=== PATIENT | male | born 1950 | race Caucasian/White ===

== ENCOUNTER 2017-03-06 21:24 | Observation (INO) ==
--- NOTE | 2017-03-06 21:33 | Emergency Department Note ---
Disposition Clinical Impression: Lower gastrointestinal hemorrhage, Anemia, Back pain, Abnormal EKG, Thoracic spine fracture Disposition: Admitted As Inpatient Referrals: Unassigned,Provider [Non-Partnered Physician] - Forms: ED Satisfaction Letter General Adult HPI - General Chief complaint: ED GI Bleed Stated complaint: rectal bleeding Time Seen by Provider: 03/06/17 21:31 Source: patient Limitations: no limitations - History of Present Illness HPI Narrative: 66-year-old male reports to the emergency department complaining of bright red blood per rectum which started earlier this evening. There is no history of rectal pain or trauma. No vomiting. No blackened stool. No abdominal pain. The patient reports chronic back pain secondary to a thoracic fracture. There is no history of acute trauma or acute back pain. The patient is not anticoagulated and has no history of aneurysm. No chest pain or shortness of breath. No dizziness weakness or syncope. No leg swelling or pain rash or urinary problems. The patient denies any other complaints or concerns. He has no history of ulcer disease or previous GI bleeding. No history of diverticulitis or colon malignancy. Pain Scale: 0 - Related Data Allergies Allergy/AdvReac Type Severity Reaction Status Date / Time No Known Allergies Allergy Verified 03/06/17 21:25 All systems ED: reviewed and negative except as stated. Past Medical History - Past Medical History Medical history: Reports: hypertension, myocardial infarction Psychiatric history: Reports: no psych history - Social History Smoking Status: Never smoker Smokeless Tobacco Status: No Alcohol use: Reports: none Drug use: Reports: none Physical Exam - General Limitations: no limitations General appearance: alert, in no apparent distress - Head Head exam: atraumatic, normocephalic, normal inspection - Eye Eye exam: Present: normal appearance, PERRL, EOMI - ENT ENT exam: normal exam, normal oropharynx, mucous membranes moist - Neck Neck exam: Present: normal inspection, full ROM, trachea midline. Absent: tenderness - Chest Chest inspection: Present: symmetric chest wall rise. Absent: tenderness - Respiratory Respiratory exam: Present: normal lung sounds bilaterally. Absent: respiratory distress, accessory muscle use, prolonged expiratory phase - Cardiovascular Cardiovascular exam: Present: regular rate, normal rhythm, normal heart sounds - Abdominal Exam Abdominal exam: Present: soft, Non-Tender, normal bowel sounds. Absent: tenderness, distention, guarding, rebound, rigidity, pulsatile mass - Rectal Exam [employer] present during exam: Yes Rectal exam: Present: normal inspection, bloody stool, other (External exam only notable bright red blood). Absent: hemorrhoids - Extremities Exam Extremities exam: Present: normal inspection, full ROM, normal capillary refill. Absent: tenderness, pedal edema, joint swelling, calf tenderness - Expanded Lower Extremity Exam Lower leg exam: Absent: Homans' sign Neurovascular/Tendon exam: Present: normal capillary refill. Absent: motor deficit, sensory deficit, tendon deficit, extremity cold to touch, pallor - Back Exam Back exam: Present: normal inspection, full ROM. Absent: tenderness, CVA tenderness (R), CVA tenderness (L), vertebral tenderness - Neurological Exam Neurological exam: Present: alert, oriented X3. Absent: motor sensory deficit - Psychiatric Psychiatric exam: Present: normal affect, normal mood - Skin Skin exam: Present: warm, dry, intact, normal color. Absent: rash, cyanosis, diaphoresis, erythema, pallor, mottled Course Vital Signs Temperature 97.8 F 03/06/17 21:25 Pulse Rate 83 03/06/17 21:25 Respiratory Rate 20 03/06/17 21:25 Blood Pressure 213/115 03/06/17 21:25 O2 Sat by Pulse Oximetry 96 03/06/17 21:25 Temperature 97.8 F 03/06/17 21:25 Pulse Rate 90 03/06/17 22:43 Respiratory Rate 16 03/06/17 22:43 Blood Pressure 154/95 03/06/17 22:43 O2 Sat by Pulse Oximetry 95 03/06/17 22:43 Oxygen Delivery Oxygen Delivery Room Air Medical Decision Making - [facility] Narrative Medical decision making narrative: The patient has painless rectal bleeding, he has had bloody stools in the ED. His laboratory studies show no major abnormality apart from slight anemia. The patient is currently not tachycardic his EKG just showed a right bundle branch block but no acute ST changes troponin negative no chest pain. The patient was given IV fluid. I discussed the case with the hospitalist on-call who has accepted the patient to their care. Per the hospitalist a secondary consult to Dr. Chandler for endoscopy if needed, I spoke with him directly he will act as health analytics consultant, we ordered CT the abdomen and pelvis to assess for diverticular disease and/or potential aortic aneurysm with fistula which seems less likely however it is conceivable. Patient is currently stable pending admission. - Lab Data Lab results reviewed: Yes I reviewed the patient's lab results. Result diagrams: 03/06/17 21:47 03/06/17 21:47 Lab Results 03/06/17 03/06/17 03/06/17 Range/Units 21:47 21:47 21:47 WBC 6.7 (4.3-11.1) K/mcL RBC 4.25 (4.19-5.50) M/mcL Hgb 12.8 L (12.9-16.9) g/dL Hct 40.7 (37.5-50.1) % MCV 95.8 (83.0-100.0) fL MCH 30.1 (28.0-33.3) pg MCHC 31.4 L (31.6-35.5) g/dL RDW 14.6 H (11.5-14.5) % Plt Count 296 (140-400) K/mcL MPV 9.7 (9.4-12.4) fL Immature Gran % 0.2 (0-4) % Seg Neutrophils % 54.1 % Lymphocytes % 24.5 % Monocytes % 14.0 % Eosinophils % 6.3 % Basophils % 0.9 % Neutrophils # 3.6 (1.6-8.9) K/mcL Lymphocytes # 1.6 (0.6-4.6) K/mcL Monocytes # 0.9 (0.0-1.3) K/mcL Eosinophils # 0.4 (0.0-0.6) K/mcL Basophils # 0.1 (0.0-0.2) K/mcL PT 10.7 (9.4-12.1) Seconds INR 1.0 APTT 29.6 (26.0-36.0) Seconds Sodium 139 (136-145) mEq/L Potassium 4.1 (3.5-4.5) mEq/L Chloride 104 (98-109) mEq/L Carbon Dioxide 25 (19-29) mEq/L BUN 20 (8-26) mg/dL Creatinine 0.88 (0.72-1.25) mg/dL Est GFR ( Amer) > 60 (> 60) Est GFR (Non-Af Amer) > 60 (> 60) BUN/Creatinine Ratio 23 (6-26) Glucose 100 H (70-99) mg/dL Calculated Osmolality 291 (280-300) Calcium 8.7 (8.6-10.8) mg/dL Total Bilirubin (0.2-1.2) mg/dL Direct Bilirubin (0.0-0.5) mg/dL Indirect Bilirubin (0.0-1.2) mg/dL AST (5-34) Units/L ALT (0-55) Units/L Alkaline Phosphatase (38-126) Units/L Troponin I (0-0.03) ng/mL Serum Total Protein (6.0-8.3) g/dL Albumin (3.5-5.0) g/dL Globulin (2.4-3.5) g/dL Albumin/Globulin Ratio (1.1-2.2) Lipase 25 (8-78) Units/L 03/06/17 03/06/17 Range/Units 21:47 21:47 WBC (4.3-11.1) K/mcL RBC (4.19-5.50) M/mcL Hgb (12.9-16.9) g/dL Hct (37.5-50.1) % MCV (83.0-100.0) fL MCH (28.0-33.3) pg MCHC (31.6-35.5) g/dL RDW (11.5-14.5) % Plt Count (140-400) K/mcL MPV (9.4-12.4) fL Immature Gran % (0-4) % Seg Neutrophils % % Lymphocytes % % Monocytes % % Eosinophils % % Basophils % % Neutrophils # (1.6-8.9) K/mcL Lymphocytes # (0.6-4.6) K/mcL Monocytes # (0.0-1.3) K/mcL Eosinophils # (0.0-0.6) K/mcL Basophils # (0.0-0.2) K/mcL PT (9.4-12.1) Seconds INR APTT (26.0-36.0) Seconds Sodium (136-145) mEq/L Potassium (3.5-4.5) mEq/L Chloride (98-109) mEq/L Carbon Dioxide (19-29) mEq/L BUN (8-26) mg/dL Creatinine (0.72-1.25) mg/dL Est GFR ( Amer) (> 60) Est GFR (Non-Af Amer) (> 60) BUN/Creatinine Ratio (6-26) Glucose (70-99) mg/dL Calculated Osmolality (280-300) Calcium (8.6-10.8) mg/dL Total Bilirubin 0.3 (0.2-1.2) mg/dL Direct Bilirubin 0.1 (0.0-0.5) mg/dL Indirect Bilirubin 0.2 (0.0-1.2) mg/dL AST 14 (5-34) Units/L ALT 10 (0-55) Units/L Alkaline Phosphatase 106 (38-126) Units/L Troponin I 0.00 (0-0.03) ng/mL Serum Total Protein 7.7 (6.0-8.3) g/dL Albumin 3.5 (3.5-5.0) g/dL Globulin 4.2 H (2.4-3.5) g/dL Albumin/Globulin Ratio 0.8 L (1.1-2.2) Lipase (8-78) Units/L - Radiology Data Radiology results reviewed: Yes I reviewed the patient's radiology results.
[2017-03-06 22:09] LABS: Basophils # 0.1 K/mcL (0.0-0.2); Basophils % 0.9 %; Eosinophils # 0.4 K/mcL (0.0-0.6); Eosinophils % 6.3 %; Hematocrit 40.7 % (37.5-50.1); Hemoglobin 12.8 g/dL (12.9-16.9); Immature Granulocytes % 0.2 % (0-4); Lymphocytes # 1.6 K/mcL (0.6-4.6); Lymphocytes % 24.5 %; Mean Corpuscular HGB Conc 31.4 g/dL (31.6-35.5); Mean Corpuscular Hemoglobin 30.1 pg (28.0-33.3); Mean Corpuscular Volume 95.8 fL (83.0-100.0); Mean Platelet Volume 9.7 fL (9.4-12.4); Monocytes # 0.9 K/mcL (0.0-1.3); Neutrophils # 3.6 K/mcL (1.6-8.9); Platelet Count 296 K/mcL (140-400); Red Blood Count 4.25 M/mcL (4.19-5.50); Red Cell Distribution Width 14.6 % (11.5-14.5); Segmented Neutrophils % 54.1 %
[2017-03-06] MEDS ORDERED: 0.9 % Sodium Chloride 1,000 ML IVC ONE (22:12)
[2017-03-06 22:15] LABS: Prothrombin Time 10.7 Seconds (9.4-12.1)
[2017-03-06 22:17] LABS: Activated Partial Thrombo Time 29.6 Seconds (26.0-36.0)
[2017-03-06 22:24] LABS: Albumin 3.5 g/dL (3.5-5.0); Albumin/Globulin Ratio 0.8 (1.1-2.2); Bilirubin,Direct 0.1 mg/dL (0.0-0.5); Bilirubin,Indirect 0.2 mg/dL (0.0-1.2); Bilirubin,Total 0.3 mg/dL (0.2-1.2); Globulin 4.2 g/dL (2.4-3.5); Total Protein 7.7 g/dL (6.0-8.3)
[2017-03-06 22:25] LABS: BUN/Creatinine Ratio 23 (6-26); Blood Urea Nitrogen 20 mg/dL (8-26); Calcium 8.7 mg/dL (8.6-10.8); Carbon Dioxide 25 mEq/L (19-29); Chloride 104 mEq/L (98-109); Glucose 100 mg/dL (70-99); Lipase 25 Units/L (8-78); Osmolality,Calculated 291 (280-300); Potassium 4.1 mEq/L (3.5-4.5); Sodium 139 mEq/L (136-145); eGFR For African Americans > 60 (> 60); eGFR For Non-African Americans > 60 (> 60)
[2017-03-07] MEDS ORDERED: Ondansetron ODT 4 MG TAB.RAPDIS SL PRN (08:44)
[2017-03-07] MEDS ORDERED: Naloxone 0.4 MG/ML INJ IVP PRN (08:44)
[2017-03-07] MEDS ORDERED: Famotidine 20 MG/2 ML VIAL IVP PRN (08:54)
[2017-03-07] MEDS ORDERED: *HR* HYDROmorphone (PF) 1 MG/ML SYRINGE IVP PRN (08:54)
[2017-03-07] MEDS ORDERED: Ondansetron 4 MG/2 ML VIAL IVP PRN (08:54)
[2017-03-07] MEDS ORDERED: *HR* OxyCODONE Immed Rel 5 MG TABLET PO PRN (08:54)
[2017-03-07] MEDS ORDERED: Ringers Solution, Lactated 1,000 ML IVC SCH (09:00)
--- NOTE | 2017-03-07 09:06 | Internal Med History&Physical ---
Date of Encounter: 03/07/17 Time of Encounter: 09:00 Assessment and Plan (1) Rectal bleeding Status: Acute . (2) Acute blood loss anemia Status: Acute . (3) Lower gastrointestinal hemorrhage Status: Acute . Internal Medicine - H&P: HPI Chief complaint: Rectal bleeding Admitted From: Emergency Dept Plans for Post Hospital Care: Home History of present illness: Mr. Torrez is a 66 year old male with history significant of hypertension, dyslipidemia, OA/OP, DDD/DJD of spine, chronic MSK/back pain, comp fxs T-spine, CAD/PTCAstents/CABG/AMIs, obesity, nonsmoker, etc.. The patient is admitted [facility] parameters when he presented with complaints of bright red blood per rectum starting earlier in the evening of the day of admission. Patient denied any pain with bowel movements. Denied any trauma. Denied any nausea vomiting or denied awareness of any blackened or tarry stools or mucousy stool passage. Denied constipation or abdominal pain as a prelude to symptoms. 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 Not currently on any anticoagulation therapy denies any exercises and nonsteroidal anti-inflammatory use for pain. Findings in the ED noted patient be afebrile. Pulse 90 bpm respirations 16-20 BP 154-213/95-115. O2 saturation 96% on room air. WBC 6.7 hemoglobin 12.8 platelets 296,000. Differential normal. PT 10.7 INR 1 PTT 29.6. Metabolic panel normal BUN 20 creatinine 0.88. Glucose 100 osm 291. Lipase 25. Hepatic function normal. Troponin 0.00. Chest x-ray demonstrated no acute or active cardiac border process. Median sternotomy apparent enlarged right-sided shadow stable. CT abdomen and pelvis demonstrates no acute findings. Bilateral inguinal hernias containing fat left greater than right. Colonic diverticulosis. Preliminary impression suggests a lower gastrointestinal bleed/blood per rectum. Painless, wipe hematochezia. Clinically stable at this time with no orthostasis or symptomatic anemia due to blood loss. SIRS/sepsis criteria not present at admission. Vital signs do show a degree of accelerated hypertension/ hypertensive urgency. This was also asymptomatic. Radiographic findings notes extensive diverticular disease of the colon. This is potentially the source for bleeding in this setting. Further elucidation required, to include endoscopic assessment and potential intervention. The patient presents a risk for further acute clinical decline and morbidity given presenting chief complaints and comorbid conditions. Workup and treatments will proceed comprehensively. The patient was visited and interviewed and examined. Cumulative laboratory and radiographic data base will be considered and discussed. Pertinent ancillary medical records including ECW and PCI documentation when available was reviewed and considered. Given the patient's presenting concerns, past medical history, clinical findings and symptoms, he is admitted at this time will undergo further evaluation and disposition. Orders were written as per the computerized physician border patrol agent system.......................................................................... .................... Consultative opinions will be sought as clinical circumstances justify. Initial consultative opinion as requested general surgery/endoscopy. Pain management needs will be addressed. Laboratory+radiographic data base will be updated as appropriate. Studies include: pt/inr, aptt, ddimer, amylase, lipase, type/screen, hemoccult, cardiac injury panel, BNP, UA, metabolic and hematologic panel, magnesium, phosphorus, ionized calcium, thyroid panel, lipid profile, A1c, C-peptide, CRP, sedimentation rate, blood gas, lactic acid, serologies, etc. Precautions: Aspiration, fall, delirium protocol/surveillance initiated. Telemetry with continuous hemodynamic monitoring and pulse oximetry initiated. Orthostatic vital signs. Empiric antibiotic coverage: pending diagnostics/culture data. Special studies: CT chest/abd-pelvis, chest x-ray, telemetry, EKG. Pulmonary toilet: Incentive spirometry. PRN: aerosol bronchodilator, mucolytic, antitussive. Supplemental oxygen. Corticosteroid therapy PRN. CPAP/BiPAP supplemental oxygen delivery PRN. Aerosol Mucomyst therapy PRN. Fluid and electrolyte repletion efforts will proceed. Careful attention to fluid balance and renal recovery will be emphasized. Avoidance of nephrotoxic exposure and adverse drug drug interaction in the setting of impaired renal function will be monitored closely. Acute coronary syndrome protocol/surveillance initiated. DVT and PUD prophylaxis initiated: PPI therapy, intermittent pneumatic cuffs/ TEDs. Subcutaneous heparin/Lovenox held pending resolution of rectal bleeding. Early ambulation will be encouraged. Immunization updates recommended. Influenza and pneumococcal vaccinations as part of ongoing preventative healthcare recommendations strongly recommended. Smoking cessation counseling briefly addressed. Patient is a nonsmoker. Advanced care directive discussion briefly addressed. Patient does not declare any healthcare restrictions at this time. Cardiovascular risk appraisal and cardiovascular risk reduction efforts will be emphasized. Physical=occupational therapy may be counseled to evaluate patient's functional capacity and progressive mobility if circumstances justify. Nutrition/dietary education and supplementary diet options counseling may be considered as circumstances justify. Outpatient medication schedules will be reviewed, confirmed and facilitated as appropriate. Reconciliation of home treatments including adjustments, substitutions and reintroduction into the treatment regimen will address necessary maintenance therapies for chronic pre-existing medical conditions. Plan of care has been reviewed and discussed in detail with the patient. Questions addressed. Hospital course dictated by clinical findings, treatment response and potential consultative interventions. Patient is at risk for further acute clinical declinea and morbidity due to his presenting chief complaints and comorbid conditions. Condition is serious. Prognosis is guarded. CODE STATUS is full. Past Med Surg Social Fam HX - Past Medical History Source: old records reviewed Medical history: aortic aneurysm, arthritis (DDD/DJD of spine), cancer, coronary artery disease, GERD, GI bleed, hyperlipidemia, hypertension, myocardial infarction, osteoporosis, other (Degenerative disc degenerative joint disease of the spine. Compression fractures T5-T6 T7-T8 vertebra. Chronic back pain) Psychiatric history: no psych history - Past Surgical History Surgical History: angioplasty/stent, cholecystectomy, coronary bypass (CABG), other - Social History Smoking Status: Never smoker Smokeless Tobacco Status: No Alcohol use: none Drug use: none Occupational status: retired Current living situation: Home, With Family Activity Level: Independent ambulation, Mostly sedentary Recent Out of Country Travel Within the Last 8 Weeks: No Exposure or Possible Exposure to Illness During Travel: No - Family History Father Name: Trey Torrez Living Status: Age at : 45 Cause of : Heart attack Mother Living Status: Age at : 82 Cause of : Heart failure Internal Medicine - H&P: Meds Acetaminophen [Pain Reliever] 1,000 mg PO TID 03/07/17 [History] Atorvastatin [Lipitor] 10 mg PO DAILY 03/07/17 [History] Isosorbide MONOnitrate (24 HR) [Imdur] 30 mg PO DAILY 03/07/17 [History] Lisinopril [Zestril] 10 mg PO DAILY 03/07/17 [History] Metoprolol XL (24 HR) Succ [Toprol Xl] 75 mg PO DAILY 03/07/17 [History] Docusate [Colace] 100 mg PO BID PRN #60 capsule 03/09/17 [Rx] Allergies No Known Allergies Allergy (Verified 03/06/17 21:25) All Systems PM: A 10-system review of systems was performed and is negative for pertinent findings except as documented above in the HPI. - Constitutional Constitutional: as per HPI, no chills, no fever(s), no night sweats - EENT Eyes: as per HPI, no change in vision, no discharge, no pain, no photophobia Ears: as per HPI, no ear discharge, no ear pain, no tinnitus Nose, mouth and throat: as per HPI, no dysphagia, no nasal discharge, no neck pain, no sore throat - Cardiovascular Cardiovascular ROS IM: as per HPI, no chest pain, no diaphoresis, no dyspnea, no lightheadedness, no palpitations, no syncope - Respiratory Respiratory: as per HPI, no cough, no dyspnea, no wheezing, no excessive phlegm production - Gastrointestinal Gastrointestinal: hematochezia, melena, no abdominal pain, no coffee ground emesis, no diarrhea, no hematemesis, no nausea, no vomiting - Genitourinary Genitourinary ROS male: as per HPI - Musculoskeletal Musculoskeletal ROS IM: as per HPI, back pain, no numbness, no tingling - Integumentary Integumentary IM: as per HPI, no rash, no unusual bruising - Neurological Neurological ROS: as per HPI, no confusion, no convulsions, no focal weakness, no numbness, no tingling, no tremor(s) - Psychiatric Psychiatric: as per HPI - Endocrine Endocrine IM: as per HPI - Hematologic/Lymphatic Hematologic/Lymphatic: as per HPI, no easy bruising - Allergic/Immunologic Allergic/Immunologic: as per HPI - Constitutional Vitals: Temp Pulse Resp BP Pulse Ox 97.3 F L 55 16 146/71 92 03/07/17 04:45 03/07/17 04:45 03/07/17 04:45 03/07/17 04:45 03/07/17 04:45 Vital Signs Temp Pulse Resp BP Pulse Ox 03/07/17 04:45 97.3 F L 55 16 146/71 92 03/07/17 01:27 97 03/07/17 00:54 97.8 F 64 15 167/76 97 03/07/17 00:31 18 154/83 03/06/17 23:05 100 18 141/86 94 03/06/17 22:43 90 16 154/95 95 03/06/17 21:50 97 03/06/17 21:49 97 18 164/80 94 03/06/17 21:25 97.8 F 83 20 213/115 96 Intake and Output 03/06/17 03/07/17 03/07/17 23:59 07:59 15:59 Intake Total 1000 / 1000 Output Total 0 / 0 Balance 1000 / 1000 Intake: IV Fluids 1000 / 1000 0.9 % Sodium Chloride 1, 1000 / 1000 000 ML @ 3750 mls/hr IVC .Q16M ONE Rx#:[id number] Oral 0 / 0 Output: Urine 0 / 0 Other: # Voids 1 Weight 95.254 kg 95.98 kg Patient Weight 03/07/17 23:59 Weight 95.98 kg General appearance: Present: mild distress, A&O X 3, answers questions appropriately - Head Head exam: Present: atraumatic, normocephalic - Eye Eye exam: Present: EOMI, PERRL, conjuntiva pink, sclera anicteric Pupils: Present: normal accommodation, PERRL - ENT ENT exam: Present: mucous membranes moist, normal oropharynx - Neck Neck exam general surgery: Present: supple, trachea midline. Absent: lymphadenopathy - Respiratory Respiratory exam: Present: decreased breath sounds, CTAB. Absent: accessory muscle use, rales, rhonchi, wheezes - Cardiovascular Cardiovascular exam: Present: distant heart sounds, RRR, +S1, +S2. Absent: diastolic murmur, gallop, rubs, systolic murmur - GI/Abdominal GI/Abdominal exam: Present: normal bowel sounds, soft, no peritoneal signs. Absent: distended, tenderness - Extremities Exam Extremities exam: Present: warm, radial pulses palpable and symetrical. Absent : calf tenderness, cyanotic, pedal edema - Neurological Exam Neurological exam: Present: alert, CN II-XII intact, oriented X3, no focal deficits. Absent: pronater drift, facial droop, speech deficit - Psychiatric Psychiatric exam: Present: normal affect, normal mood - Skin Skin exam: Present: dry, intact Internal Med - H&P Results - Labs CBC & Chem 7: 03/09/17 02:23 03/08/17 03:12 Labs: Short CBC 03/06/17 Range/Units 21:47 WBC 6.7 (4.3-11.1) K/mcL Hgb 12.8 L (12.9-16.9) g/dL Hct 40.7 (37.5-50.1) % Plt Count 296 (140-400) K/mcL Neutrophils # 3.6 (1.6-8.9) K/mcL BMP 03/06/17 Range/Units 21:47 Sodium 139 (136-145) mEq/L Potassium 4.1 (3.5-4.5) mEq/L Chloride 104 (98-109) mEq/L Carbon Dioxide 25 (19-29) mEq/L BUN 20 (8-26) mg/dL Creatinine 0.88 (0.72-1.25) mg/dL Glucose 100 H (70-99) mg/dL Calcium 8.7 (8.6-10.8) mg/dL Cardiac Enzymes 03/06/17 Range/Units 21:47 Troponin I 0.00 (0-0.03) ng/mL Liver Function 03/06/17 Range/Units 21:47 Total Bilirubin 0.3 (0.2-1.2) mg/dL Direct Bilirubin 0.1 (0.0-0.5) mg/dL AST 14 (5-34) Units/L ALT 10 (0-55) Units/L Alkaline Phosphatase 106 (38-126) Units/L Albumin 3.5 (3.5-5.0) g/dL Abnormal lab results Hgb 12.8 g/dL (12.9-16.9) L 03/06/17 21:47 MCHC 31.4 g/dL (31.6-35.5) L 03/06/17 21:47 RDW 14.6 % (11.5-14.5) H 03/06/17 21:47 Glucose 100 mg/dL (70-99) H 03/06/17 21:47 Globulin 4.2 g/dL (2.4-3.5) H 03/06/17 21:47 Albumin/Globulin Ratio 0.8 (1.1-2.2) L 03/06/17 21:47 Stool Occult Blood Positive (Negative) A 03/07/17 01:55 Laboratory Results WBC 6.7 K/mcL (4.3-11.1) 03/06/17 21:47 RBC 4.25 M/mcL (4.19-5.50) 03/06/17 21:47 Hgb 12.8 g/dL (12.9-16.9) L 03/06/17 21:47 Hct 40.7 % (37.5-50.1) 03/06/17 21:47 MCV 95.8 fL (83.0-100.0) 03/06/17 21:47 MCH 30.1 pg (28.0-33.3) 03/06/17 21:47 MCHC 31.4 g/dL (31.6-35.5) L 03/06/17 21:47 RDW 14.6 % (11.5-14.5) H 03/06/17 21:47 Plt Count 296 K/mcL (140-400) 03/06/17 21:47 MPV 9.7 fL (9.4-12.4) 03/06/17 21:47 Immature Gran % 0.2 % (0-4) 03/06/17 21:47 Seg Neutrophils % 54.1 % 03/06/17 21:47 Lymphocytes % 24.5 % 03/06/17 21:47 Monocytes % 14.0 % 03/06/17 21:47 Eosinophils % 6.3 % 03/06/17 21:47 Basophils % 0.9 % 03/06/17 21:47 Neutrophils # 3.6 K/mcL (1.6-8.9) 03/06/17 21:47 Lymphocytes # 1.6 K/mcL (0.6-4.6) 03/06/17 21:47 Monocytes # 0.9 K/mcL (0.0-1.3) 03/06/17 21:47 Eosinophils # 0.4 K/mcL (0.0-0.6) 03/06/17 21:47 Basophils # 0.1 K/mcL (0.0-0.2) 03/06/17 21:47 PT 10.7 Seconds (9.4-12.1) 03/06/17 21:47 INR 1.0 03/06/17 21:47 APTT 29.6 Seconds (26.0-36.0) 03/06/17 21:47 Sodium 139 mEq/L (136-145) 03/06/17 21:47 Potassium 4.1 mEq/L (3.5-4.5) 03/06/17 21:47 Chloride 104 mEq/L (98-109) 03/06/17 21:47 Carbon Dioxide 25 mEq/L (19-29) 03/06/17 21:47 BUN 20 mg/dL (8-26) 03/06/17 21:47 Creatinine 0.88 mg/dL (0.72-1.25) 03/06/17 21:47 Est GFR ( Amer) > 60 (> 60) 03/06/17 21:47 Est GFR (Non-Af Amer) > 60 (> 60) 03/06/17 21:47 BUN/Creatinine Ratio 23 (6-26) 03/06/17 21:47 Glucose 100 mg/dL (70-99) H 03/06/17 21:47 Calculated Osmolality 291 (280-300) 03/06/17 21:47 Calcium 8.7 mg/dL (8.6-10.8) 03/06/17 21:47 Total Bilirubin 0.3 mg/dL (0.2-1.2) 03/06/17 21:47 Direct Bilirubin 0.1 mg/dL (0.0-0.5) 03/06/17 21:47 Indirect Bilirubin 0.2 mg/dL (0.0-1.2) 03/06/17 21:47 AST 14 Units/L (5-34) 03/06/17 21:47 ALT 10 Units/L (0-55) 03/06/17 21:47 Alkaline Phosphatase 106 Units/L (38-126) 03/06/17 21:47 Troponin I 0.00 ng/mL (0-0.03) 03/06/17 21:47 Serum Total Protein 7.7 g/dL (6.0-8.3) 03/06/17 21:47 Albumin 3.5 g/dL (3.5-5.0) 03/06/17 21:47 Globulin 4.2 g/dL (2.4-3.5) H 03/06/17 21:47 Albumin/Globulin Ratio 0.8 (1.1-2.2) L 03/06/17 21:47 Lipase 25 Units/L (8-78) 03/06/17 21:47 Stool Occult Blood Positive (Negative) A 03/07/17 01:55 Impressions Chest X-Ray 03/06/17 22:12 IMPRESSION: 1. No focal airspace disease. D/ / Alonzo Perez MD / Alonzo Perez MD Interpreting Provider: Alonzo Perez MD Abdomen/Pelvis CT 03/06/17 23:13 IMPRESSION: 1. No acute findings identified within the abdomen and pelvis. 2. Bilateral inguinal hernias containing fat, greater on left. 3. Colonic diverticulosis. D/ / 03/07/2017 06:55:26 Alonzo Perez MD / claudia Interpreting Provider: Alonzo Perez MD
--- NOTE | 2017-03-07 09:09 | Internal Med History&Physical ---
<Rene Carter - Last Filed: 03/07/17 08:47> Date of Encounter: 03/07/17 Time of Encounter: 08:47 Assessment and Plan (1) Lower gastrointestinal hemorrhage Current visit: Yes Status: Acute Mr. torrez presented with bright red blood per rectum nonpainful in nature. Denies traumatic event, denies previous episodes of blood per rectum. Denies history of colonoscopy but has had a episode of diverticulitis in the 1970s. History of hemorrhoids but no recent hemorrhoids per patient history. Differential: Diverticular bleed, colon pathology, internal hemorrhoid. Plan: - Aspirin and lisinopril has been held - PT/INR, PTT and type and cross up and ordered - Repeat labs - Nothing by mouth - General surgery has been consult. - Continue every 4 hour vital monitoring. (2) Acute blood loss anemia Current visit: Yes Status: Acute Patient presents with GI bleed and presenting hemoglobin of 12.8. MCV of 95.8. Review of patient records demonstrates a hemoglobin of 12.9 on 02/21/2017. Patient appears to have more of a chronic anemia normocytic in nature but currently has acute blood loss per rectum stool continue to monitor for further drop in hemoglobin. Plan: - Every 6 hours hemoglobin checks. - Hold anticoagulation and DVT prophylaxis - Type and screen (3) Coronary artery disease Current visit: Yes Status: Acute Patient has a history of coronary artery disease with a CABG in 2004. Patient follows up with Dr. Baxter with [facility] cardiology. Cardiac coverage includes metoprolol 75 mg, atorvastatin, lisinopril, aspirin and isosorbide mononitrate. Plan: -Continue statin -Continue beta vinayak - Hold aspirin and lisinopril with current GI bleeding. Qualifiers: Qualified Code(s): I25.10 - Atherosclerotic heart disease of [place] coronary artery without angina pectoris (4) Osteoporosis Current visit: Yes Status: Acute Patient has diagnosed osteoporosis with recent DEXA scan. Recent vertebral fracture. Recent MRI of the thoracic spine demonstrates an acute compression fracture T6 with loss of 15% of the vertebral body height, subacute compression fracture of T8 with loss of 60% of vertebral body height. Old fracture of T12 with loss of 90% of the vertebral body height. Small central disc protrusion at T9-T10. Plan: - Patient would benefit from vitamin D3 and this bisphosphonate. -Continue pain control with Tylenol. Qualifiers: Qualified Code(s): M81.0 - Age-related osteoporosis without current pathological fracture (5) Abnormal EKG Current visit: Yes Status: Acute Patient admitted with GI bleed EKG performed in the emergency department demonstrates normal sinus rhythm with a right bundle branch block. Previous EKG provided from 2005 demonstrates normal sinus rhythm without right bundle branch block. I reviewed the patient's outpatient records on [facility] with a EKG documented in Dr. Baxter's note from recent cardiology visit with normal sinus rhythm with right bundle branch block. Patient is asymptomatic currently. Plan: - Continue cardiac monitoring (6) Thoracic spine fracture Current visit: Yes Status: Acute Thoracic spine fracture as documented above likely secondary to osteoporosis. Continue pain control. Qualifiers: Qualified Code(s): S22.009A - Unspecified fracture of unspecified thoracic vertebra, initial encounter for closed fracture (7) DVT prophylaxis Current visit: Yes Status: Acute SCDs. Internal Medicine - H&P: HPI Chief complaint: Blood per rectum Admitted From: Emergency Dept Plans for Post Hospital Care: Home History of present illness: Mr. Torrez is a 66 year old male with past medical history of CABG in 2004, coronary artery disease, diverticulosis, basal cell carcinoma, osteoporosis with recent DEXA scan, admitted to [facility] with bright red blood per rectum. Mr. torrez says that he was sitting down to watch the [employer] draft last evening when he had the urge to go to the bathroom he had an episode of loose stool per rectum and when he looked it was all blood in his toilet bowl. He had several episodes following with bright red blood per rectum which she took a picture of to show in the emergency department. He denies ever having bright red blood per rectum or any bleeding prior. He said in the 1970s he had an episode of diverticulitis but denies any GI problems since. He denies ever having a colonoscopy in the past which she said he would like one. He has had a history of hemorrhoids in the past but denies any pain or feeling of hemorrhoids or blood when wiping prior to this episode. He said upon arrival to the emergency department he continued to have multiple episodes of bright red blood per rectum which is mainly blood with very little stool. He denies any dizziness, lightheadedness, chest pain or palpitations, abdominal pain, nausea, vomiting, constipation, blood in his urine or trouble urinating. He denies taking significant NSAIDs for his neck pain. He says he has osteoporosis and has a compression fracture which he has been worked up with a recent DEXA scan and imaging. Past Med Surg Social Fam HX - Past Medical History Medical history: cancer, coronary artery disease, hyperlipidemia, hypertension, myocardial infarction Psychiatric history: no psych history - Past Surgical History Surgical History: angioplasty/stent, cholecystectomy, coronary bypass (CABG) - Social History Smoking Status: Never smoker Smokeless Tobacco Status: No Alcohol use: none Drug use: none - Family History Father Name: Trey Torrez Living Status: Age at : 45 Cause of : Heart attack Mother Living Status: Age at : 82 Cause of : Heart failure Internal Medicine - H&P: Meds Acetaminophen [Pain Reliever] 1,000 mg PO TID 03/07/17 [History] Aspirin [Lo-Dose Aspirin EC] 81 mg PO DAILY 03/07/17 [History] Atorvastatin [Lipitor] 10 mg PO DAILY 03/07/17 [History] Isosorbide MONOnitrate (24 HR) [Imdur] 30 mg PO DAILY 03/07/17 [History] Lisinopril [Zestril] 10 mg PO DAILY 03/07/17 [History] Metoprolol XL (24 HR) Succ [Toprol XL] 75 mg PO DAILY 03/07/17 [History] Allergies No Known Allergies Allergy (Verified 03/06/17 21:25) All Systems PM: A 10-system review of systems was performed and is negative for pertinent findings except as documented above in the HPI. - Constitutional Constitutional: no anorexia, no chills, no fatigue, no falls, no lethargy, no night sweats, no weakness - EENT Eyes: no blurry vision, no discharge Ears: no ear discharge, no ear pain, no tinnitus Nose, mouth and throat: no dysphagia, no nasal discharge, no neck pain, no sore throat - Cardiovascular Cardiovascular ROS IM: no chest pain, no diaphoresis, no dyspnea, no lightheadedness, no palpitations, no syncope - Respiratory Respiratory: no cough, no dyspnea, no wheezing, no excessive phlegm production - Gastrointestinal Gastrointestinal: diarrhea, heartburn, hematochezia, no coffee ground emesis, no dysphagia, no hematemesis, no melena, no nausea, no vomiting - Genitourinary Genitourinary ROS male: no hematuria, no nocturia - Musculoskeletal Musculoskeletal ROS IM: back pain, neck pain (Chronic), no muscle cramps, no myalgias - Integumentary Integumentary IM: no rash, no unusual bruising - Neurological Neurological ROS: no confusion, no convulsions, no focal weakness, no numbness, no tingling, no tremor(s) - Psychiatric Psychiatric: no confusion, no depression - Endocrine Endocrine IM: no polyphagia, no polyuria - Constitutional Vitals: Temp Pulse Resp BP Pulse Ox 97.3 F L 55 16 146/71 92 03/07/17 04:45 03/07/17 04:45 03/07/17 04:45 03/07/17 04:45 03/07/17 04:45 General appearance: Present: cooperative, A&O X 3, no acute distress - Head Head exam: Present: atraumatic, normocephalic - Eye Eye exam: Present: PERRL, conjuntiva pink, sclera anicteric Pupils: Present: PERRL - ENT ENT exam: Present: mucous membranes moist - Neck Neck exam general surgery: Present: supple, trachea midline. Absent: lymphadenopathy - Respiratory Respiratory exam: Present: CTAB. Absent: accessory muscle use, rales, rhonchi, wheezes - Cardiovascular Additional comments: Regular rate and rhythm with occasional skipped beat likely PVC versus PVC. S1 and S2 audible without murmur. Radial pulses and posterior tibial pulses 2+ bilateral. - GI/Abdominal GI/Abdominal exam: Present: normal bowel sounds, soft, no peritoneal signs. Absent: distended, tenderness - Extremities Exam Extremities exam: Present: pedal edema, warm, radial pulses palpable and symetrical. Absent: calf tenderness, cyanotic Additional comments: Trace bilateral lower extremity edema - Neurological Exam Neurological exam: Present: alert, oriented X3, no focal deficits. Absent: pronater drift, facial droop, speech deficit - Psychiatric Psychiatric exam: Present: normal affect, normal mood - Skin Skin exam: Present: dry, intact Internal Med - H&P Results - Labs CBC & Chem 7: 03/06/17 21:47 03/06/17 21:47 <Cory Mascorro - Last Filed: 03/07/17 19:09> Date of Encounter: 03/07/17 Internal Medicine - H&P: HPI History of present illness: Mr. Torrez is a 66 year old male All Systems PM: A 10-system review of systems was performed and is negative for pertinent findings except as documented above in the HPI. - Constitutional Vitals: Temp Pulse Resp BP Pulse Ox 97.6 F 79 18 134/81 98 03/07/17 15:48 03/07/17 15:48 03/07/17 15:48 03/07/17 15:48 03/07/17 15:48 Internal Med - H&P Results - Labs CBC & Chem 7: 03/07/17 09:51 03/07/17 09:51 Labs: Short CBC 03/07/17 Range/Units 09:51 WBC 6.0 (4.3-11.1) K/mcL Hgb 11.5 L (12.9-16.9) g/dL Hct 35.8 L (37.5-50.1) % Plt Count 295 (140-400) K/mcL Neutrophils # 4.1 (1.6-8.9) K/mcL BMP 03/07/17 09:51 Sodium 138 Potassium 4.1 Chloride 104 Carbon Dioxide 26 BUN 13 Creatinine 0.76 Glucose 96 Calcium 8.9 - Attending Attestation I examined this patient and my medical decision-making was reviewed with the ANIMAL TRAINER SUPERVISOR/PA/Advanced Practice Nurse/Resident Physician. I agree with the documented findings, disposition and treatment plan as described except to the extent set forth below. Patient has had several more bloody bowel movements this afternoon, starting to clear up with GoLYTELY. Denies associated abdominal pain. On exam his heart is regular S1-S2. Abdomen is soft. I will stop the IV fluids. Continue bowel prep. Colonoscopy in the morning.
[2017-03-07] MEDS: Pantoprazole 40 MG VIAL IVP SCH (09:58)
[2017-03-07 10:13] LABS: INR 1.1; Prothrombin Time 11.7 Seconds (9.4-12.1)
[2017-03-07 10:18] LABS: BUN/Creatinine Ratio 17 (6-26); Blood Urea Nitrogen 13 mg/dL (8-26); Calcium 8.9 mg/dL (8.6-10.8); Carbon Dioxide 26 mEq/L (19-29); Chloride 104 mEq/L (98-109); Glucose 96 mg/dL (70-99); Osmolality,Calculated 286 (280-300); Potassium 4.1 mEq/L (3.5-4.5); Sodium 138 mEq/L (136-145); eGFR For African Americans > 60 (> 60); eGFR For Non-African Americans > 60 (> 60)
[2017-03-07 10:44] LABS: Basophils # 0.1 K/mcL (0.0-0.2); Basophils % 0.8 %; Eosinophils # 0.1 K/mcL (0.0-0.6); Eosinophils % 1.8 %; Hematocrit 35.8 % (37.5-50.1); Hemoglobin 11.5 g/dL (12.9-16.9); Immature Granulocytes % 0.5 % (0-4); Lymphocytes # 1.2 K/mcL (0.6-4.6); Lymphocytes % 19.5 %; Mean Corpuscular HGB Conc 32.1 g/dL (31.6-35.5); Mean Corpuscular Hemoglobin 30.3 pg (28.0-33.3); Mean Corpuscular Volume 94.2 fL (83.0-100.0); Monocytes # 0.6 K/mcL (0.0-1.3); Monocytes % 9.4 %; Neutrophils # 4.1 K/mcL (1.6-8.9); Platelet Count 295 K/mcL (140-400); Red Cell Distribution Width 14.6 % (11.5-14.5)
--- NOTE | 2017-03-07 12:36 | General Surgery Consult Note ---
Date of Encounter: 03/07/17 Time of Encounter: 12:00 History of Present Illness Consult date: 03/07/17 Reason for consult: other (hematochezia) Requesting physician: Danilo Wilde History of present illness: 66-year-old male admitted after presenting to the [facility] ED with new onset painless, bright red, copious rectal bleeding. Patient denies any preceding change in bowel habits, constipation, abdominal pain, fever , chills, nausea or vomiting. CT scan completed on presentation to the ED was personally reviewed with [facility]. Findings include diverticulosis without obvious inflammation involving the transverse descending and sigmoid colons; bilateral inguinal hernias containing fat; no acute abdominal or pelvic findings. White count on presentation 6.7, hemoglobin 12.8, hematocrit 40.7. Repeat this a.m. white count 6.0; hemoglobin 11.5, hematocrit 35.8. Platelet count has remained stable at 296,000. PT/INR within normal limits. On examination this morning patient is in no acute distress rectal bleeding has diminished PMH: CAD with prior [place], s/p CABG 2004; aortic aneurysm, hyperlipidemia, hypertension, DJD spine with chronic back pain Surgical History: CABG, Cholecystectomy - no history prior colonoscopy Allergies: NKDA Medications: Acetaminophen 1000 mg by mouth 3 times a day Aspirin 81 mg by mouth daily Atorvastatin 10 mg by mouth daily Lisinopril 10 mg by mouth daily Metoprolol 75 mg by mouth daily Simvastatin 10 mg by mouth daily Social history: Never smoker; denies any alcohol or illicit drug use History: Father with coronary artery disease, secondary to [place], age 45; mother was secondary to heart failure, age 82 Son with history of colon polyps Physical examination: Age-appropriate male, seated at bedside in no acute distress Afebrile, 98.4, pulse 55-62, respirations 16, blood pressure 119/55 SPO2 on room air 92-94% Skin: Warm, no obvious jaundice Lungs: Notable for coarse breath sounds and rales left base (CT abdomen and pelvis demonstrated no pulmonary abnormalities in the visualized portions of the lung) Cardiac: Regular rate, no appreciable murmurs Abdomen: Soft, nontender, active bowel sounds. No appreciable intra- abdominal masses. Rectal: Deferred to time of colonoscopy Extremities: No obvious clubbing cyanosis or edema Impression: 66-year-old male admitted after presenting with new onset copious, painless, bright red rectal bleeding. The patient has remained hemodynamically stable with diminished passage rectal blood since admission. CT abdomen and pelvis notable for fairly extensive diverticulosis. The characteristics of the patient's symptoms and complaints consistent with diverticular etiology for the patient's rectal bleeding. Surgical consultation for colonoscopy has been placed. I have discussed this with the admitting service as well as the patient. The patient will undergo mechanical bowel prep today, colonoscopy in a.m. The procedure was discussed in detail. Risks include hemorrhage, Infection, abdominal pain, bloating and perforation. The patient has expressed understanding and is willing to proceed with colonoscopy. Consent has been obtained. Past Med Surg Social Fam HX - Past Medical History Medical history: cancer, coronary artery disease, hyperlipidemia, hypertension, myocardial infarction Psychiatric history: no psych history - Past Surgical History Surgical History: angioplasty/stent, cholecystectomy, coronary bypass (CABG) - Social History Smoking Status: Never smoker Smokeless Tobacco Status: No Alcohol use: none Drug use: none - Family History Father Name: Trey Torrez Living Status: Age at : 45 Cause of : Heart attack Mother Living Status: Age at : 82 Cause of : Heart failure Medications and Allergies Acetaminophen [Pain Reliever] 1,000 mg PO TID 03/07/17 [History] Aspirin [Lo-Dose Aspirin EC] 81 mg PO DAILY 03/07/17 [History] Atorvastatin [Lipitor] 10 mg PO DAILY 03/07/17 [History] Isosorbide MONOnitrate (24 HR) [Imdur] 30 mg PO DAILY 03/07/17 [History] Lisinopril [Zestril] 10 mg PO DAILY 03/07/17 [History] Metoprolol XL (24 HR) Succ [Toprol XL] 75 mg PO DAILY 03/07/17 [History] Allergies No Known Allergies Allergy (Verified 03/06/17 21:25) Review of Systems All systems PM: A 10-system review of systems was performed and is negative for pertinent findings except as documented above in the HPI. General Surgery Exam Initial Vital Signs Temp Pulse Resp BP Pulse Ox 97.8 F 83 20 213/115 96 03/06/17 21:25 03/06/17 21:25 03/06/17 21:25 03/06/17 21:25 03/06/17 21:25 Exam Initial Vital Signs Temp Pulse Resp BP Pulse Ox 97.8 F 83 20 213/115 96 03/06/17 21:25 03/06/17 21:25 03/06/17 21:25 03/06/17 21:25 03/06/17 21:25 Results - Labs 03/07/17 09:51 03/07/17 09:51 Abnormal lab results RBC 3.80 M/mcL (4.19-5.50) L 03/07/17 09:51 Hgb 11.5 g/dL (12.9-16.9) L 03/07/17 09:51 Hct 35.8 % (37.5-50.1) L 03/07/17 09:51 RDW 14.6 % (11.5-14.5) H 03/07/17 09:51 Globulin 4.2 g/dL (2.4-3.5) H 03/06/17 21:47 Albumin/Globulin Ratio 0.8 (1.1-2.2) L 03/06/17 21:47 Stool Occult Blood Positive (Negative) A 03/07/17 01:55 Diabetes panel 03/07/17 Range/Units 09:51 Sodium 138 (136-145) mEq/L Potassium 4.1 (3.5-4.5) mEq/L Chloride 104 (98-109) mEq/L Carbon Dioxide 26 (19-29) mEq/L BUN 13 (8-26) mg/dL Creatinine 0.76 (0.72-1.25) mg/dL Glucose 96 (70-99) mg/dL Calcium 8.9 (8.6-10.8) mg/dL Calcium panel 03/07/17 Range/Units 09:51 Calcium 8.9 (8.6-10.8) mg/dL Phosphorus 3.0 (2.3-4.7) mg/dL Pituitary panel 03/07/17 Range/Units 09:51 Sodium 138 (136-145) mEq/L Potassium 4.1 (3.5-4.5) mEq/L Chloride 104 (98-109) mEq/L Carbon Dioxide 26 (19-29) mEq/L BUN 13 (8-26) mg/dL Creatinine 0.76 (0.72-1.25) mg/dL Glucose 96 (70-99) mg/dL Calcium 8.9 (8.6-10.8) mg/dL Adrenal panel 03/07/17 Range/Units 09:51 Sodium 138 (136-145) mEq/L Potassium 4.1 (3.5-4.5) mEq/L Chloride 104 (98-109) mEq/L Carbon Dioxide 26 (19-29) mEq/L BUN 13 (8-26) mg/dL Creatinine 0.76 (0.72-1.25) mg/dL Glucose 96 (70-99) mg/dL Calcium 8.9 (8.6-10.8) mg/dL All other labs normal. Consult Discharge Plan - Plan Referrals: Hayder Donald Jr, MD [Primary Care Provider] -
[2017-03-07] MEDS ORDERED: Polyethylene Glycol 3350 255 GM POWDER PO ONE (12:37)
--- NOTE | 2017-03-07 17:51 | Electrocardiograph Report ---
[place] [id number] Test Date: 2017-03-06 Pat Name: Trey Torrez Department: 105 Room: 3A36 Gender: M Doctor Of Nurse Anesthesia: : 1950 Requested By: Danilo Wilde Order Number: [id number] Reading MD: Radha Hood Measurements Intervals [place] Rate: 78 P: 58 MD: 155 QRS: 68 QRSD: 134 T: 14 QT: 408 QTc: 441 Interpretive Statements SINUS RHYTHM RIGHT BUNDLE BRANCH BLOCK [120+ ms QRS DURATION, UPRIGHT V1, 40+ ms S IN I/aVL/V4/V5/V6] Electronically Signed On 03-07-2017 17:49:44 EDT by Radha Hood
[2017-03-08 03:44] LABS: Basophils % 0.6 %; Eosinophils # 0.1 K/mcL (0.0-0.6); Eosinophils % 2.3 %; Hemoglobin 10.5 g/dL (12.9-16.9); Immature Granulocytes % 0.5 % (0-4); Lymphocytes # 1.4 K/mcL (0.6-4.6); Lymphocytes % 22.5 %; Mean Corpuscular HGB Conc 32.8 g/dL (31.6-35.5); Mean Corpuscular Hemoglobin 30.9 pg (28.0-33.3); Mean Corpuscular Volume 94.1 fL (83.0-100.0); Mean Platelet Volume 10.1 fL (9.4-12.4); Monocytes # 0.8 K/mcL (0.0-1.3); Monocytes % 12.7 %; Neutrophils # 3.8 K/mcL (1.6-8.9); Platelet Count 274 K/mcL (140-400); Red Cell Distribution Width 14.7 % (11.5-14.5); Segmented Neutrophils % 61.4 %
[2017-03-08 03:59] LABS: % Iron Saturation 30 % (20-55); C-Reactive Protein 3 mg/L (Less than 5); Iron 90 mcg/dL (65-175); Transferrin 216 mg/dL (174-364)
[2017-03-08 04:03] LABS: BUN/Creatinine Ratio 13 (6-26); Blood Urea Nitrogen 11 mg/dL (8-26); Calcium 8.8 mg/dL (8.6-10.8); Carbon Dioxide 28 mEq/L (19-29); Chloride 105 mEq/L (98-109); Chol/HDL Ratio 3.7 (0-4.9); Cholesterol 123 mg/dL (< 200); Glucose 102 mg/dL (70-99); HDL Cholesterol 33 mg/dL (40-59); LDL Cholesterol,Calculated 69 mg/dL (0-99); Magnesium 1.7 mg/dL (1.6-2.6); Osmolality,Calculated 288 (280-300); Phosphorous 3.8 mg/dL (2.3-4.7); Potassium 3.7 mEq/L (3.5-4.5); Sodium 139 mEq/L (136-145); Triglycerides 106 mg/dL (< 150); eGFR For African Americans > 60 (> 60); eGFR For Non-African Americans > 60 (> 60)
[2017-03-08 04:19] LABS: VBG HCO3 27.8 mEq/L (21-27); VBG PH 7.39 pH Units (7.32-7.42)
[2017-03-08] MEDS: Acetaminophen 325 MG TABLET PO PRN ×2 (04:28→21:20)
[2017-03-08] MEDS: Pantoprazole 40 MG VIAL IVP SCH (09:18)
[2017-03-08] MEDS ORDERED: *HR* FentaNYL (PF) 100 MCG/2 ML VIAL IVP PRN (09:54)
[2017-03-08] MEDS ORDERED: Simethicone 40 MG/0.6 ML MLS IR ONE (09:54)
[2017-03-08] MEDS ORDERED: Ringers Solution, Lactated 1,000 ML IVC SCH (10:00)
[2017-03-08] MEDS ORDERED: *HR* Midazolam HCl 5 MG/5 ML VIAL IVP ONE (10:27)
[2017-03-08] MEDS ORDERED: *HR* FentaNYL (PF) 100 MCG/2 ML VIAL ONE (10:27)
[2017-03-08] MEDS: *HR* Midazolam HCl 5 MG/5 ML VIAL IVP PRN ×2 (10:43→10:44)
--- NOTE | 2017-03-08 11:19 | Pre-Sedation Evaluation ---
Pre-sedation evaluation - Pre-sedation checklist Date of procedure: 03/08/17 Procedure: colonoscopy Recent Vitals: Last Vital Signs Temp 98.3 F 03/08/17 06:45 Pulse 65 03/08/17 11:07 Resp 16 03/08/17 11:07 BP 130/85 03/08/17 11:07 Pulse Ox 97 03/08/17 11:07 H&P (including ROS) documented in medical record: Yes Previous reaction to sedatives/anesthetics: No Dietary Status: NPO 6 hours prior to procedure Airway Assessment: Patient can open mouth completely, TMJ function normal, Micrognathia (under-bite, receding chin) absent, Neck with adequate range of motion Dentition: No loose teeth or bridges Possible difficult airway: No ASA Classification *see protocol: CLASS III-Severe systemic disease Plan of Care: Pt appropriate candidate for procedure/moderate/conscious sedation , Risks/benefits of procedure/sedation discussed w/ patient/family
[2017-03-08] MEDS ORDERED: 0.9 % Sodium Chloride 1,000 ML IVC SCH (11:30)
--- NOTE | 2017-03-08 16:13 | Internal Med Progress Note ---
Date of Encounter: 03/08/17 Time of Encounter: 16:11 - Assessment and plan (1) Diverticular hemorrhage Current Visit: Yes Status: Acute Assessment and plan: Patient had a colonoscopy today which found small and large mouth sigmoid diverticuli with stigmata of recent bleed. No active bleeding noted. We will continue inpatient monitoring and care. Advance diet. Check hemoglobin and hematocrit in the morning. Monitor clinically for bleeding. If bleeding recurs we will consult interventional radiology for and the vascular study and possible embolization versus partial colectomy if the bleeding cannot be stopped. (2) Coronary artery disease Current Visit: Yes Status: Acute Assessment and plan: Hold aspirin. Continue with beta vinayak. No evidence of ACS. Qualifiers: Coronary Disease-Associated Artery/Lesion type: [place] artery [place] vs. transplanted heart: [place] heart Associated angina: without angina Qualified Code(s): I25.10 - Atherosclerotic heart disease of [place] coronary artery without angina pectoris (3) DVT prophylaxis Current Visit: Yes Status: Acute Assessment and plan: Anticoagulation is contraindicated due to active bleed. Encourage early ambulation. (4) Acute blood loss anemia Current Visit: Yes Status: Acute Assessment and plan: Monitor hemoglobin and hematocrit every 24 hours. - Subjective Interval history: Patient reports several small amounts of blood per rectum over the last 24 hours , has become more scant since he completed the bowel prep. Denies any associated rectal pain or abdominal pain. Denies chest pain lightheadedness and syncope. - Constitutional Vitals: Temp Pulse Resp BP Pulse Ox 97.8 F 87 17 115/76 96 03/08/17 15:27 03/08/17 15:27 03/08/17 15:27 03/08/17 15:27 03/08/17 15:27 General appearance: Present: cooperative, A&O X 3, no acute distress - Respiratory Respiratory exam: Present: CTAB. Absent: accessory muscle use, rales, rhonchi, wheezes - Cardiovascular Cardiovascular exam: Present: RRR, +S1, +S2. Absent: diastolic murmur, gallop, rubs, systolic murmur - GI/Abdominal GI/Abdominal exam: Present: normal bowel sounds, soft, no peritoneal signs. Absent: distended, tenderness - Extremities Exam Extremities exam: Present: warm, radial pulses palpable and symetrical. Absent : calf tenderness, cyanotic, pedal edema - Skin Skin exam: Present: dry, intact Internal Medicine: Result - Labs CBC & Chem 7: 03/08/17 03:12 03/08/17 03:12 Labs: Short CBC 03/08/17 Range/Units 03:12 WBC 6.2 (4.3-11.1) K/mcL Hgb 10.5 L (12.9-16.9) g/dL Hct 32.0 L (37.5-50.1) % Plt Count 274 (140-400) K/mcL Neutrophils # 3.8 (1.6-8.9) K/mcL BMP 03/08/17 03:12 Sodium 139 Potassium 3.7 Chloride 105 Carbon Dioxide 28 BUN 11 Creatinine 0.88 Glucose 102 H Calcium 8.8 - ABG Interpretation ABG results: PT/INR, D-dimer PT 11.7 Seconds (9.4-12.1) 03/07/17 09:51 Consult Discharge Plan - Plan Referrals: Hayder Donald Jr, MD [Primary Care Provider] - 03/21/17 2:30 pm
[2017-03-09 02:52] LABS: Basophils # 0.1 K/mcL (0.0-0.2); Basophils % 0.8 %; Eosinophils # 0.5 K/mcL (0.0-0.6); Eosinophils % 6.6 %; Hematocrit 29.3 % (37.5-50.1); Hemoglobin 9.5 g/dL (12.9-16.9); Immature Granulocytes % 0.4 % (0-4); Lymphocytes # 1.6 K/mcL (0.6-4.6); Lymphocytes % 21.9 %; Mean Corpuscular HGB Conc 32.4 g/dL (31.6-35.5); Mean Corpuscular Hemoglobin 30.8 pg (28.0-33.3); Mean Corpuscular Volume 95.1 fL (83.0-100.0); Mean Platelet Volume 10.2 fL (9.4-12.4); Monocytes # 1.1 K/mcL (0.0-1.3); Monocytes % 15.1 %; Platelet Count 257 K/mcL (140-400); Red Blood Count 3.08 M/mcL (4.19-5.50); Red Cell Distribution Width 14.7 % (11.5-14.5); Segmented Neutrophils % 55.2 %
[2017-03-09] MEDS: Acetaminophen 325 MG TABLET PO PRN (03:46)
[2017-03-09] MEDS ORDERED: Metoprolol XL (24 HR) Succ 25 MG TAB.ER.24H PO SCH (09:00)
[2017-03-09 10:15] VITALS: BP 127/82
--- NOTE | 2017-03-09 13:06 | Discharge Summary ---
Date of Encounter: 03/09/17 Time of Encounter: 11:00 - Discharge Diagnosis (1) Diverticular hemorrhage Priority: Primary Status: Acute (2) Coronary artery disease Priority: Secondary Status: Acute Qualifiers: Coronary Disease-Associated Artery/Lesion type: [place] artery [place] vs. transplanted heart: [place] heart Associated angina: without angina Qualified Code(s): I25.10 - Atherosclerotic heart disease of [place] coronary artery without angina pectoris (3) DVT prophylaxis Priority: Secondary Status: Acute (4) Acute blood loss anemia Priority: Secondary Status: Acute - Discharge Medications Prescriptions: Docusate [Colace] 100 mg PO BID PRN #60 capsule PRN Reason: Constipation Home Medications: Acetaminophen [Pain Reliever] 1,000 mg PO TID 03/07/17 [History] Atorvastatin [Lipitor] 10 mg PO DAILY 03/07/17 [History] Isosorbide MONOnitrate (24 HR) [Imdur] 30 mg PO DAILY 03/07/17 [History] Lisinopril [Zestril] 10 mg PO DAILY 03/07/17 [History] Metoprolol XL (24 HR) Succ [Toprol Xl] 75 mg PO DAILY 03/07/17 [History] Docusate [Colace] 100 mg PO BID PRN #60 capsule 03/09/17 [Rx] Allergies/Adverse Reactions: Allergies No Known Allergies Allergy (Verified 03/06/17 21:25) Date of admission: 03/06/17 23:49 Primary care physician: Hayder Donald Jr, MD - Patient Status Disposition: Home, Self-Care Condition: Good Functional capacity at discharge: independent ambulation Overall status at discharge: patient is back to baseline - Discharge Instructions Follow Up With: Hayder Donald Jr, MD [Primary Care Provider] - 03/21/17 2:30 pm Additional Instructions: Please have outpatient blood work done on Friday, March 12 and see her family doctor within 7-10 days. Stop taking aspirin and only resume baby aspirin on March 11 if no bleeding recurs. Return to the hospital if bleeding gets worse or he have chest pain or severe abdominal pain. - Diet and Activity Activity: increase activity as tolerated Diet: low fat, low cholesterol, low salt diet Hospital course: Mr. Torrez is a 66 year old male with past medical history significant for CAD status post CABG in 2004, diverticulosis basal cell carcinoma and osteoporosis who presented to the hospital for evaluation of rectal bleeding. He had several episodes of bright red blood per rectum on the day of admission. He denied any prior similar episodes. He has had a remote episode of diverticulitis. In the emergency department he had multiple episodes of hematochezia but denied chest pain dizziness and lightheadedness. Denied abdominal pain. A CT of the abdominal pelvis was done in the emergency department and revealed presence of diverticulosis, no other acute findings. He was admitted to the medical service. Gen. surgery was consulted. She was treated with IV Protonix and IV fluids started on a clear liquid diet. He had a colonoscopy done the next day which showed large and small bowel diverticuli with evidence of recent bleeding but no active bleeding. There was no site that was amenable for cautery. The patient was monitored for 36 hours after the colonoscopy. His hemoglobin slowly drifted down. Currently is 9.5. His rectal bleeding has stopped over the last 24 hours. He has been instructed to stop the aspirin and resume in in 2 days if he notices no more rectal bleeding. He was instructed to return to the hospital if the bleeding recurs or he has chest pain dizziness or lightheadedness or severe abdominal pain. He verbalized understanding and agreement with the plan. - Time Spent with Patient Total time spent providing and/or coordinating discharge services: Greater than 30 minutes (I have spent 40 minutes coordinating this discharge.) - Constitutional Vitals: Temp Pulse Resp BP Pulse Ox 98.0 F 78 17 127/82 97 03/09/17 10:14 03/09/17 10:14 03/09/17 10:14 03/09/17 10:14 03/09/17 10:14 General appearance: Present: cooperative, A&O X 3, no acute distress - Eye Eye exam: Present: PERRL, conjuntiva pink, sclera anicteric Pupils: Present: PERRL - Respiratory Respiratory exam: Present: CTAB. Absent: accessory muscle use, rales, rhonchi, wheezes - Cardiovascular Cardiovascular exam: Present: RRR, +S1, +S2. Absent: diastolic murmur, gallop, rubs, systolic murmur - GI/Abdominal GI/Abdominal exam: Present: normal bowel sounds, soft, no peritoneal signs. Absent: distended, tenderness - Extremities Exam Extremities exam: Present: warm, radial pulses palpable and symetrical. Absent : calf tenderness, cyanotic, pedal edema
== END 2017-03-09 14:11 | disposition home or self-care (01) ==
LOC: EMEROO 21:24 → 3ANU 21:24
PROVIDERS: ADMIT Internal Medicine; ATTEND Internal Medicine

== ENCOUNTER 2020-03-03 18:11 | Observation (INO) ==
[2020-03-03 19:01] LABS: Hematocrit 39.3 % (37.5-50.1); Hemoglobin 12.3 g/dL (12.9-16.9); Lymphocytes # 0.9 K/mcL (0.6-4.6); Lymphocytes % 10.3 %; Mean Corpuscular HGB Conc 31.3 g/dL (31.6-35.5); Mean Corpuscular Hemoglobin 30.6 pg (28.0-33.3); Mean Corpuscular Volume 97.8 fL (83.0-100.0); Mean Platelet Volume 10.3 fL (9.4-12.4); Monocytes # 0.7 K/mcL (0.0-1.3); Neutrophils # 6.9 K/mcL (1.6-8.9); Platelet Count 318 K/mcL (140-400); Red Blood Count 4.02 M/mcL (4.19-5.50); Red Cell Distribution Width 15.1 % (11.5-14.5); Segmented Neutrophils % 80.7 %; White Blood Count 8.6 K/mcL (4.3-11.1)
[2020-03-03 19:10] LABS: Alanine Aminotransferase 15 Units/L (7-52); Albumin 3.8 g/dL (3.5-5.7); Albumin/Globulin Ratio 1.4 (1.1-2.2); Alkaline Phosphatase 77 Units/L (34-104); Aspartate Amino Transferase 13 Units/L (13-39); BUN/Creatinine Ratio 36 (6-26); Bilirubin,Total 0.4 mg/dL (0.3-1.0); Blood Urea Nitrogen 43 mg/dL (8-23); Carbon Dioxide 26 mEq/L (23-29); Chloride 106 mEq/L (98-107); Globulin 2.8 g/dL (2.4-3.5); Glucose 112 mg/dL (70-105); Osmolality,Calculated 304 (280-300); Potassium 3.9 mEq/L (3.5-5.1); Sodium 141 mEq/L (136-145); Total Protein 6.6 g/dL (6.4-8.9); Troponin I < 0.03 ng/mL (< 0.04); eGFR For African Americans > 60 (> 60); eGFR For Non-African Americans > 60 (> 60)
[2020-03-03 19:21] LABS: Bilirubin,Urine Negative (Negative); Blood,Urine Negative (Negative); Clarity,Urine Clear (Clear); Color,Urine Yellow (Yellow); Glucose,Urine (UA) Normal (Normal); Ketones,Urine Negative (Negative); Leukocyte Esterase,Urine Negative (Negative); Nitrite,Urine Negative (Negative); PH,Urine 5.5 pH Units (5.0-8.0); Protein,Urine 30 mg/dL (Neg-Trace); Urobilinogen,Urine Normal (Normal)
[2020-03-03] MEDS ORDERED: 0.9 % Sodium Chloride 1,000 ML IVC ONE (19:22)
[2020-03-03 19:23] LABS: Bacteria,Urine None Seen per hpf (None-Few); Hyaline Casts,Urine None Seen per lpf (None-Few); RBC,Urine 0-3 per hpf (0-3); Squamous Epithelial Cell,Urine Few per lpf (None-Few); WBC,Urine 0-3 per hpf (0-3)
[2020-03-03] MEDS ORDERED: Ondansetron ODT 4 MG TAB.RAPDIS SL PRN (21:11)
[2020-03-03] MEDS ORDERED: Naloxone 0.4 MG/ML INJ IVP PRN (21:11)
[2020-03-03] MEDS ORDERED: 0.9 % Sodium Chloride 1,000 ML IVC SCH (21:15)
[2020-03-03 21:40] LABS: Magnesium 1.9 mg/dL (1.6-2.6)
[2020-03-04] MEDS: *HR* Heparin 5,000 UNIT/ML VIAL SQ SCH ×3 (05:27→21:05)
[2020-03-04 05:55] LABS: Hematocrit 33.7 % (37.5-50.1); Hemoglobin 10.9 g/dL (12.9-16.9); Mean Corpuscular HGB Conc 32.3 g/dL (31.6-35.5); Mean Corpuscular Hemoglobin 31.2 pg (28.0-33.3); Mean Corpuscular Volume 96.6 fL (83.0-100.0); Mean Platelet Volume 10.5 fL (9.4-12.4); Platelet Count 282 K/mcL (140-400); Red Blood Count 3.49 M/mcL (4.19-5.50); Red Cell Distribution Width 15.4 % (11.5-14.5); White Blood Count 10.1 K/mcL (4.3-11.1)
[2020-03-04 06:18] LABS: BUN/Creatinine Ratio 34 (6-26); Blood Urea Nitrogen 31 mg/dL (8-23); Calcium 8.2 mg/dL (8.6-10.3); Carbon Dioxide 27 mEq/L (23-29); Chloride 107 mEq/L (98-107); Glucose 83 mg/dL (70-105); Osmolality,Calculated 294 (280-300); Potassium 3.6 mEq/L (3.5-5.1); Sodium 139 mEq/L (136-145); eGFR For African Americans > 60 (> 60); eGFR For Non-African Americans > 60 (> 60)
[2020-03-04] MEDS: Aspirin 81 MG TAB.CHEW PO SCH (08:52)
[2020-03-04] MEDS: Isosorbide MONOnitrate (24 HR) 30 MG TAB.ER.24H PO SCH (08:52)
[2020-03-04] MEDS: Metoprolol XL (24 HR) Succ 50 MG TAB.ER.24H PO SCH (08:52)
[2020-03-05] MEDS: *HR* Heparin 5,000 UNIT/ML VIAL SQ SCH ×2 (05:59→13:22)
[2020-03-05] MEDS ORDERED: Regadenoson 0.4 MG/5 ML SYRINGE IVP ONE (06:57)
[2020-03-05 07:47] LABS: Hematocrit 36.2 % (37.5-50.1); Hemoglobin 11.6 g/dL (12.9-16.9); Mean Corpuscular Hemoglobin 30.4 pg (28.0-33.3); Mean Platelet Volume 10.6 fL (9.4-12.4); Platelet Count 307 K/mcL (140-400); Red Blood Count 3.81 M/mcL (4.19-5.50); Red Cell Distribution Width 15.3 % (11.5-14.5); White Blood Count 9.4 K/mcL (4.3-11.1)
[2020-03-05 07:57] LABS: BUN/Creatinine Ratio 27 (6-26); Blood Urea Nitrogen 23 mg/dL (8-23); Calcium 8.6 mg/dL (8.6-10.3); Carbon Dioxide 28 mEq/L (23-29); Chloride 100 mEq/L (98-107); Glucose 89 mg/dL (70-105); Osmolality,Calculated 283 (280-300); Potassium 3.6 mEq/L (3.5-5.1); Sodium 135 mEq/L (136-145); eGFR For African Americans > 60 (> 60); eGFR For Non-African Americans > 60 (> 60)
[2020-03-05] MEDS ORDERED: Acetaminophen 325 MG TABLET PO PRN (10:04)
[2020-03-05] MEDS: Metoprolol XL (24 HR) Succ 50 MG TAB.ER.24H PO SCH (10:15)
[2020-03-05] MEDS: Isosorbide MONOnitrate (24 HR) 30 MG TAB.ER.24H PO SCH (10:16)
[2020-03-05] MEDS: Aspirin 81 MG TAB.CHEW PO SCH (10:16)
[2020-03-05 11:54] VITALS: BP 168/87
== END 2020-03-05 14:46 | disposition home or self-care (01) ==
LOC: EMEROOARM 18:11 → 3BNU 18:11 → SUATTDRO 20:00 → 3BNU 20:43
PROVIDERS: ADMIT Family Medicine; ATTEND Family Medicine

== ENCOUNTER 2020-03-07 08:02 | Inpatient (IN) ==
[2020-03-07] MEDS ORDERED: CeFAZolin Syr 2,000MG/20 ML 2,000 MG/20 ML SYRINGE IVPB ONE (08:37)
[2020-03-07] MEDS ORDERED: Ringers Solution, Lactated 1,000 ML IVC SCH (08:45)
[2020-03-07] MEDS ORDERED: *HR* OxyCODONE Immed Rel 5 MG TABLET PO PRN (08:55)
[2020-03-07] MEDS ORDERED: *HR* Promethazine 25 MG/ML VIAL IVP PRN (08:55)
[2020-03-07] MEDS ORDERED: *HR* HYDROmorphone PF 0.5 MG/0.5 ML SYRINGE IVP PRN (08:55)
[2020-03-07] MEDS ORDERED: Ondansetron 4 MG/2 ML VIAL IVP ONE (08:55)
[2020-03-07] MEDS ORDERED: Acetaminophen IV 1,000 MG/100 ML INFUS..BTL IVPB ONE (08:56)
[2020-03-07] MEDS ORDERED: Heparin 1,000 UNITS/500 mL 500 ML ONE ×2 (09:19→09:27)
[2020-03-07] MEDS ORDERED: *HR* Succinylcholine 200 MG/10 ML VIAL IVP ONE (09:20)
[2020-03-07] MEDS ORDERED: *HR* Vasopressin 20 UNIT/ML VIAL ONE (09:21)
[2020-03-07] MEDS ORDERED: *HR* Remifentanil 2 MG VIAL IVP ONE (09:27)
[2020-03-07] MEDS ORDERED: *HR* FentaNYL (PF) 100 MCG/2 ML VIAL ONE ×3 (09:27→11:50)
[2020-03-07] MEDS ORDERED: *HR* Phenylephrine 10 MG/ML VIAL ONE (09:27)
[2020-03-07] MEDS ORDERED: Dexamethasone 4 MG/ML VIAL ONE (09:27)
[2020-03-07] MEDS ORDERED: Ondansetron 4 MG/2 ML VIAL ONE (09:27)
[2020-03-07] MEDS ORDERED: *HR* Heparin 5,000 UNIT/ML VIAL ONE ×2 (09:27→09:40)
[2020-03-07] MEDS ORDERED: Lidocaine -MPF 2% 2 ML VIAL ONE (09:27)
[2020-03-07] MEDS ORDERED: *HR* Propofol 200 MG/20 ML VIAL IVP ONE ×2 (09:27→11:50)
[2020-03-07] MEDS ORDERED: EPHEDrine 50 MG/ML VIAL ONE (09:34)
[2020-03-07] MEDS ORDERED: ceFAZolin 1,000 MG, Sodium Chloride IRRigation 1,000 ML IR ONE (10:30)
[2020-03-07] MEDS ORDERED: Lidocaine HCL 4 ML Topical Solution (Laryng-O-Jet Kit Sterile Pak) TP ONE (10:39)
[2020-03-07] MEDS ORDERED: Protamine Sulfate 50 MG/5 ML VIAL IVP ONE (10:43)
[2020-03-07] MEDS ORDERED: Heparin 1,000 UNITS/500 mL 1,000 ML ONE (10:43)
[2020-03-07] MEDS ORDERED: NiCARdipine 2.5 MG/10 ML Syringe IVPB ONE (10:55)
[2020-03-07] MEDS ORDERED: MethylPREDNISolone 40 MG/ML VIAL ONE (11:00)
[2020-03-07] MEDS ORDERED: *HR* PHENYLEPHRINE 1,000 MCG/10 ML SYRINGE IVP ONE (13:51)
[2020-03-07] MEDS ORDERED: *HR* HYDROcodone/Acet 5/325 mg TABLET PO PRN (16:35)
[2020-03-07] MEDS ORDERED: Acetaminophen 325 MG TABLET PO PRN (16:35)
[2020-03-07] MEDS ORDERED: Naloxone 0.4 MG/ML INJ IVP PRN (16:35)
[2020-03-07] MEDS ORDERED: *HR* Labetalol 20 MG/4 ML SYRINGE IVP PRN (16:35)
[2020-03-07] MEDS ORDERED: predniSONE 20 MG TABLET PO ONE (16:35)
[2020-03-07] MEDS: ceFAZolin 2,000 MG in 0.9 % Sodium Chloride 100 ML IVPB SCH (17:45)
[2020-03-07] MEDS: Artificial Tears SOLN 15 ML BOTTLE RIGHT EYE SCH (19:56)
[2020-03-08] MEDS: ceFAZolin 2,000 MG in 0.9 % Sodium Chloride 100 ML IVPB SCH ×2 (00:29→07:51)
[2020-03-08 06:36] LABS: Basophils % 0.2 %; Eosinophils % 0.1 %; Hemoglobin 11.6 g/dL (12.9-16.9); Immature Granulocytes % 0.6 % (0-4); Lymphocytes # 0.7 K/mcL (0.6-4.6); Lymphocytes % 5.7 %; Mean Corpuscular HGB Conc 33.1 g/dL (31.6-35.5); Mean Corpuscular Volume 96.7 fL (83.0-100.0); Mean Platelet Volume 11.1 fL (9.4-12.4); Monocytes % 8.2 %; Neutrophils # 10.4 K/mcL (1.6-8.9); Platelet Count 269 K/mcL (140-400); Red Blood Count 3.62 M/mcL (4.19-5.50); Red Cell Distribution Width 15.6 % (11.5-14.5); Segmented Neutrophils % 85.2 %; White Blood Count 12.2 K/mcL (4.3-11.1)
[2020-03-08] MEDS: Artificial Tears SOLN 15 ML BOTTLE RIGHT EYE SCH ×2 (07:53→14:29)
[2020-03-08] MEDS ORDERED: Aspirin 81 MG TAB.CHEW PO SCH (09:00)
[2020-03-08] MEDS ORDERED: Metoprolol XL (24 HR) Succ 25 MG TAB.ER.24H PO SCH (09:00)
[2020-03-08] MEDS ORDERED: Isosorbide MONOnitrate (24 HR) 30 MG TAB.ER.24H PO SCH (09:00)
[2020-03-08] MEDS ORDERED: Metoprolol XL (24 HR) Succ 50 MG TAB.ER.24H PO SCH (09:00)
[2020-03-08 09:38] LABS: BUN/Creatinine Ratio 22 (6-26); Blood Urea Nitrogen 24 mg/dL (8-23); Calcium 8.9 mg/dL (8.6-10.3); Carbon Dioxide 33 mEq/L (23-29); Chloride 97 mEq/L (98-107); Glucose 108 mg/dL (70-105); Osmolality,Calculated 287 (280-300); Sodium 136 mEq/L (136-145); eGFR For African Americans > 60 (> 60); eGFR For Non-African Americans > 60 (> 60)
[2020-03-08 11:52] VITALS: BP 112/66
== END 2020-03-08 16:56 | disposition home or self-care (01) | DRG 39 ==
LOC: SAMDAY 08:02 → 3NENU 14:53
PROVIDERS: ADMIT Surgery Vascular Surgery; ATTEND Surgery Vascular Surgery